=== PATIENT | female | born 1965 | race Caucasian/White ===

== ENCOUNTER → 2022-03-30 11:15 | Outpatient (CLI) | payer OTHER, SELFPAY ==
--- NOTE | 2022-03-30 11:19 | DI.MRI.S_ITS ---
PROCEDURE: MRFOOT LT WO CON INDICATIONS: LEFT FOOT PAIN TECHNIQUE: Noncontrast sagittal T1 spin echo and T2 fast spin echo with fat saturation, long-axis T1 spin echo and STIR, short-axis T1 spin echo and T2 fast spin echo with fat saturation through the forefoot. COMPARISON: None. FINDINGS: Image quality: Excellent. Bones and joints: No acute trabecular bone injury or fracture. Mild hallux valgus. Moderate degenerative changes are seen at the 1st metatarsophalangeal joint with cartilage loss, subchondral cystic changes, and subchondral edema as well as marginal osteophyte formation. A bipartite appearance of the medial hallux sesamoid with mild internal edema is most likely the related to congenital variation with superimposed degenerative changes versus less likely remote prior fracture. No sesamoid subluxation is seen. Mild focal cystic changes at the distal lateral aspect of the 1st cuneiform may be related to chronic traction related changes from the Lisfranc ligament insertion versus degenerative cystic changes. Soft tissues: A circumscribed mass is seen lateral to the 1st proximal phalanx extending into the 1st webspace and measuring up to 3.1 x 2.1 x 1.3 cm (image 10 of series 5, and image 18 of series 7). The mass is peripherally hyperintense and centrally hypointense on fat-suppressed T2-weighted images, and predominantly hyperintense on T1-weighted images. The mass approaches the plantar lateral aspect of the 1st metatarsophalangeal joint just distal to the lateral hallux sesamoid. There is grade 2-3 fatty infiltration of the abductor digiti minimi muscle that may be related to chronic denervation changes. The visualized plantar foot muscles otherwise demonstrate normal signal and bulk. Visualized flexor and extensor tendons appear intact, without tenosynovitis. The principal Lisfranc ligament appears intact. Sagittal images demonstrate no evidence for plantar plate tears. IMPRESSION: 1. Circumscribed 3.1 cm masslike lesion in the webspace between the 1st and 2nd toes may represent a ganglion cyst with proteinaceous or hemorrhagic contents versus a benign or malignant soft tissue neoplasm. MRI of the foot with and without contrast could be performed to evaluate for solid components and better evaluate for intralesional fat for further characterization. 2. Mild hallux valgus with moderate degenerative changes at the 1st metatarsophalangeal joint. Probable degenerative subchondral edema at the medial hallux sesamoid. 3. Fatty infiltration of the abductor digiti minimi muscle is suspicious for chronic denervation changes/Ortega neuropathy. Approved by: Rigo Wray M.D. on 04/02/2022 at 8:38
== END ==
PROVIDERS: Family Provider Physician Assistant; PCP Family Medicine; Referring Provider Family Medicine; Visit Provider Family Medicine
DX: R22.42 Localized swelling, mass and lump, left lower limb (principal); M20.12 Hallux valgus (acquired), left foot; M79.672 Pain in left foot
CPT/HCPCS: 73718

== ENCOUNTER 2022-07-04 10:32 | Outpatient (CLI) | payer OTHER, SELFPAY | END 2022-07-12 14:35 | disposition home or self-care (01) | PROVIDERS: Family Provider Family Medicine; PCP Family Medicine; Referring Provider Physical Medicine & Rehabilitation; Visit Provider Physical Medicine & Rehabilitation | DX: R20.2 Paresthesia of skin (principal) | CPT/HCPCS: 95886; 95909 ==

== ENCOUNTER 2024-05-25 10:45 | Outpatient (RCR) | payer OTHER, SELFPAY ==
--- NOTE | 2023-12-04 16:00 | ST.OPPOC ---
Physical, Occupational & Speech Therapy At [facility] Visit Care Team Role Provider Type Griselda Geller PA-C Primary Care Provider Non-Staff Address: [address] [place], [address] Magali Santiago MD Family Provider Non-Staff Address: [address] [place], [address] NGHIA Leroy Attending Provider Non-Staff Referring Provider Address: [address] [place], [address] Speech Pathology Plan of Care Plan of Care Dates 12/04/23-03/05/24 Patient History Christina De Leon is a 58-year old woman referred for speech therapy at the referral of Grace Rodríguez due to changes in speech and facial movement 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 She has seen multiple speech therapists and physical therapists to work on a myriad of symptoms that arose shortly after her surgery. Symptoms include the following: left eye numb, apparent shifting of left ear cartilliage (earbuds don't fit right anymore), feeling of taughtness along left side of face, numbness of majority of left side of face, numbness of left side of tongue and soft palate, dry mouth on left side, pain at the corner of the lips on left side, decreased smell and taste on left side, inability to raise left eyebrow, difficulty turning head left, dizziness, left eye twitching/fluttering, and jaw significantly to the left. Due to these various muscular and neurological changes, particularly her jaw deviating, she reports changes in her speech and particular difficulty with /s/ and /f/ phonemes. She does not report any changes in swallowing aside from difficulty with mastication secondary to reduced jaw opening and significant jaw deviation to the left. Her main concern right now is the sound of her speech and the assymetry of her face. Her goals for speech therapy are to ease the tension in her mastication muscles to allow for more natural mastication and re-align her jaw to facilitate accurate production of fricatives. Short Term Goals 1. Pt will benefit from instruction in compensatory articulator movements in order to produce target phonemes with 80% accuracy at the sentence level. 2. Pt will perform strengthening and stretching exercises for affected muscles (masseter, pterygoids, frontalis, etc) with 80% accuracy independently in order to decrease symptoms of facial paresis. Comment: Electronically Signed by: VERN Velasquez 12/09/23 3000 If you are in agreement with this Plan of Care, please return a signed and dated copy. I have reviewed this Plan of Care and certify that the skilled therapy services above are required to meet the patient?s needs. Physician Signature Date Printed Name and Credentials Clinical Instructor Signature Printed Name and Credentials
--- NOTE | 2023-12-04 16:00 | ST.OPIE ---
Visit Care Team Role Provider Type Griselda Geller PA-C Primary Care Provider Non-Staff Specialty: Medical Address: [address] [facility], [place], [address] Email: Magali Santiago MD Family Provider Non-Staff Specialty: Family Practice Address: [address] [place], [address] Email: NGHIA Leroy Attending Provider Non-Staff Referring Provider Specialty: Nursing Address: [address] [place], [address] Email: Speech-Language Pathology Initial Evaluation SUPERVISOR PURIFICATION Motor Speech Evaluation Start: 12/04/23 13:04 Freq: Status: Active Protocol: Document 12/04/23 13:22 CG (Rec: 12/04/23 13:43 CG [id number]) Motor Speech Evaluation Session Time Visit Start Time 13:00 Visit Stop Time 13:45 Total Visit Minutes 45 Visit Information Visit Number 1 Plan of Care Dates 12/04/23-03/05/24 Insurance Information [facility] Setting Setting Outpatient Care Next Note Type Next Note Type Treatment Note Patient History Source: [employer]). 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 She has seen multiple speech therapists and physical therapists to work on a myriad of symptoms that arose shortly after her surgery. Symptoms include the following : left eye numb, apparent shifting of left ear cartilage (earbuds don't fit right anymore), feeling of tautness along left side of face, numbness of majority of left side of face, numbness of left side of tongue and soft palate, dry mouth on left side, pain at the corner of the lips on left side, decreased smell and taste on left side, inability to raise left eyebrow, difficulty turning head left, dizziness, left eye twitching/fluttering, and jaw significantly to the left. Due to these various muscular and neurological changes, particularly her jaw deviating , she reports changes in her speech and particular difficulty with /s/ and /f/ phonemes. She does not report any changes in swallowing aside from difficulty with mastication secondary to reduced jaw opening and significant jaw deviation to the left. Her main concern right now is the sound of her speech and the asymmetry of her face. Her goals for speech therapy are to ease the tension in her mastication muscles to allow for more natural mastication and re- align her jaw to facilitate accurate production of fricatives. Mental Status Mental Status Alert,Responsive,Cooperative Subjective Observations Subjective Pt was alert, reponsive, cooperative, and able to recall detailed medical history relating to this referral. She ambulated to the evaluation room with a cane. She did not report significant pain other than feeling tightness on left side of the face. Oral Motor Lips Function Mild Impairment Observation at rest Relatively symmetrical Pucker Deviates left upon pucker Alternating pucker/retraction Motor planning appears WFL; adequate rate Tongue Function Mild Impairment Jaw Function Moderate Impairment Observations at rest deviates left Opening deviates significantly left. Reduced opening Soft Palate Function Mild Impairment Observations at rest Difficult to assess due to reduced jaw opening Symmetry Asymmetrical. Less elevation on left side Alternating elevation/relaxation WFL Respiration/Phonation Phonation Stimulus sustained /a/ Quality WFL Other pt reports increased hoarseness Function WFL Loudness WFL Diadochokinetic Rates P^ Duration per 3 sec. 27, 9 per sec Quality WNL Comments above average T^ Duration per 3 sec. 27, 9 per sec Quality WNL Comments above average K^ Duration per 3 sec. 26, 9 per sec Quality WNL Comments above average Speech Intelligibility Phoneme Severity WNL Word Severity WNL Sentence Severity WNL Conversation Severity WNL Awareness/Strategy Use Findings Details Motor Speech Function Mild Impairment Type of Impairment very mild misarticulation of / s/ phoneme Assessment Details Assessment The pt presents with a complex mix of symptoms which appear mostly related to muscles innervated by the trigeminal nerve (CN V), particularly along the mandibular branch of the trigeminal nerve. Other symptoms, however, have clear implications of facial nerve ( CN VII) involvement. For example, pt is unable to raise her left eyebrow and also has changes in taste and salivation on the left side. There are also symptoms consistent with involvement of CNVIII including vestibular challenges. Overall, most of the pt's symptoms appear to be related to CN III through VIII. It is this senior writer's suspicion that the pt will need further neurological evaluation, possibly facial EMG evaluation if not already completed, to further assess neurological involvement. Pt may benefit from exercises to relax tension or increase strength in some of the involved muscles; she may also benefit from instruction in articulator placement and how to compensate articulator placement within the vocal tract to decrease perceptual differences in phoneme production from her baseline. However, if there continues to be an underlying neurological etiology impacting the pt's ability to control these muscles, exercises will only be able to attempt to compensate for weakness and will not be able to restore lost function. Therefore, a continued interdisciplinary approach is recommended with PT, neurology , and the pt's facial palsy specialists. Prognosis Rehabilitation Potential Fair Recommendations Treatment Recommended Yes Therapy Recommendations 1. Continued interprofessional collaboration between SUPERVISOR PURIFICATION, PT , and neurologist to coordinate best POC. 2. Exercises to strengthen weakened muscled impacted by possible cranial nerve involvement. 3. Instruction in articulator placement to compensate for muscle weakness/paresis to increase accurate production of target phonemes. Short Term Goals 1. Pt will benefit from instruction in compensatory articulator movements in order to produce target phonemes with 80% accuracy at the sentence level. 2. Pt will perform strengthening and stretching exercises for affected muscles (masseter, pterygoids, frontalis, etc) with 80% accuracy independently in order to decrease symptoms of facial paresis. Referrals Suggested Neurology Patient/Family Education Education Described results of evaluation,Patient Understanding
--- NOTE | 2023-12-09 10:37 | ST-OP ANOTE ---
Physical, Occupational & Speech Therapy At [facility] Speech Therapy Note POULTRY HELPER faxed POC via E-fax to referring provider (NGHIA Leroy) this date requesting signature if in agreement.
--- NOTE | 2023-12-18 16:48 | ST.OPTN ---
Visit Care Team Role Provider Type Griselda Geller PA-C Primary Care Provider Non-Staff Address: [address] [facility], [place], [address] Magali Santiago MD Family Provider Non-Staff Address: [address] [place], [address] NGHIA Leroy Attending Provider Non-Staff Referring Provider Address: [address] [place], [address] PERFORMANCE ANALYST Treatment Note PERFORMANCE ANALYST Treatment Note Start: 12/18/23 16:38 Freq: Status: Active Protocol: Document 12/18/23 16:38 CG (Rec: 12/18/23 16:48 CG [id number]) Speech Pathology Treatment Note Session Time Visit Start Time 13:00 Visit Stop Time 13:45 Total Visit Minutes 45 Visit Information Visit Number 1 Plan of Care Dates 12/04/23-03/05/24 Next Note Type Next Note Type Treatment Note General Information Patient History Christina De Leon is a 58-year old woman referred for speech therapy at the referral of Grace Rodríguez due to changes in speech and facial movement 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 She has seen multiple speech therapists and physical therapists to work on a myriad of symptoms that arose shortly after her surgery. Symptoms include the following : left eye numb, apparent shifting of left ear cartilliage (earbuds don't fit right anymore), feeling of taughtness along left side of face, numbness of majority of left side of face, numbness of left side of tongue and soft palate, dry mouth on left side, pain at the corner of the lips on left side, decreased smell and taste on left side, inability to raise left eyebrow, difficulty turning head left, dizziness, left eye twitching/fluttering, and jaw significantly to the left. Due to these various muscular and neurological changes, particularly her jaw deviating , she reports changes in her speech and particular difficulty with /s/ and /f/ phonemes. She does not report any changes in swallowing aside from difficulty with mastication secondary to reduced jaw opening and significant jaw deviation to the left. Her main concern right now is the sound of her speech and the assymetry of her face. Her goals for speech therapy are to ease the tension in her mastication muscles to allow for more natural mastication and re- align her jaw to facilitate accurate production of fricatives. Objective Short Term Goals 1. Pt will benefit from instruction in compensatory articulator movements in order to produce target phonemes with 80% accuracy at the sentence level. 2. Pt will perform strengthening and stretching exercises for affected muscles (masseter, pterygoids, frontalis, etc) with 80% accuracy independently in order to decrease symptoms of facial paresis. Treatment Activities Discussed continued outside referrals and possible further testing for cranial nerve activity. PERFORMANCE ANALYST to discuss with pt's PCP and/or PT. Discussed self-massage techniques to assist in releasing SCM muscle and trapezius to decrease tension around extrinsic laryngeal muscles as well as facial muscles on left side. Discussed articulator placement for /s/ and use of lateralizing tongue to overcorrect airflow to become more central through the oral cavity. Assessment Patient Response to Treatment Good Impairments Identified Speech,Other Progress Towards Goals Good Progress Assessment of Improvement Pt was agreeable to pursuing further interprofessional evaluation to determine underlying cause of facial muscle weakness. Pt demonstrates very tight/tense SCM and trapezius upon palpation. Discussed basic stretches and encouraged pt to follow with PT. Pt would likely benefit from more frequent PT visits as there is significant muscular tension related to jaw asymmetry. Pt was able to lateralize tongue R to correct airflow for /s/. Pt was able to produce /s/ blends at the word level with 75% accuracy independently. She had more difficulty with / st/, /sw/, and /sl/ blends and was more successful with /sk/ blends. Assigned practiced word lists to practice compensatory lingual movement. PERFORMANCE ANALYST to contact PCP and PT re further assessment and discussion of increasing PT for muscle tension. Patient/Caregiver Understanding Good Plan Amount of Therapy Recommended 2 Months Length of Session 30 Minutes Therapeutic Contents Intelligibility,Oral Motor Training Provided Patient/Caregiver Instruction Home Exercise Program
--- NOTE | 2024-02-04 17:33 | ST.OPTN ---
Visit Care Team Role Provider Type Griselda Geller PA-C Primary Care Provider Non-Staff Address: [address] [facility], [place], [address] Magali Santiago MD Family Provider Non-Staff Address: [address] [place], [address] NGHIA Leroy Attending Provider Non-Staff Referring Provider Address: [address] [place], [address] EHS MANAGER Treatment Note EHS MANAGER Treatment Note Start: 12/18/23 16:38 Freq: Status: Active Protocol: Document 02/04/24 17:13 SS (Rec: 02/04/24 17:33 SS [id number]) Speech Pathology Treatment Note Session Time Visit Start Time 14:30 Visit Stop Time 15:16 Total Visit Minutes 46 Visit Information Visit Number 2 (15 visits only) Plan of Care Dates 12/04/23-03/05/24 Setting Treatment Setting Outpatient Care Visit Type Note Type Treatment Note Next Note Type Next Note Type Treatment Note General Information Patient History Christina De Leon is a 58-year old woman referred for speech therapy at the referral of Grace Rodríguez due to changes in speech and facial movement 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 She has seen multiple speech therapists and physical therapists to work on a myriad of symptoms that arose shortly after her surgery. Symptoms include the following : left eye numb, apparent shifting of left ear cartilliage (earbuds don't fit right anymore), feeling of taughtness along left side of face, numbness of majority of left side of face, numbness of left side of tongue and soft palate, dry mouth on left side, pain at the corner of the lips on left side, decreased smell and taste on left side, inability to raise left eyebrow, difficulty turning head left, dizziness, left eye twitching/fluttering, and jaw significantly to the left. Due to these various muscular and neurological changes, particularly her jaw deviating , she reports changes in her speech and particular difficulty with /s/ and /f/ phonemes. She does not report any changes in swallowing aside from difficulty with mastication secondary to reduced jaw opening and significant jaw deviation to the left. Her main concern right now is the sound of her speech and the assymetry of her face. Her goals for speech therapy are to ease the tension in her mastication muscles to allow for more natural mastication and re- align her jaw to facilitate accurate production of fricatives. Subjective Identification Type Name Observations/Patient Presentation Pt arrived to the session on time. She was engaged and motivated throughout. Objective Short Term Goals 1. Pt will benefit from instruction in compensatory articulator movements in order to produce target phonemes with 80% accuracy at the sentence level. 2. Pt will perform strengthening and stretching exercises for affected muscles (masseter, pterygoids, frontalis, etc) with 80% accuracy independently in order to decrease symptoms of facial paresis. Treatment Activities Discussed results of outside referrals and possible further testing for cranial nerve activity. Reviewed self- massage techniques to assist in releasing SCM muscle and trapezius to decrease tension around extrinsic laryngeal muscles as well as facial muscles on left side. Discussed articulator placement for /s/ and use of lateralizing tongue to overcorrect airflow to become more central through the oral cavity and implemented during functional speech activities. . Assessment Patient Response to Treatment Good Impairments Identified Speech,Other Progress Towards Goals Good Progress Assessment of Improvement Pt reported she has not had PT services for two months as the rehabilitation clinic was closed, but services are set to resume next month. Additionally, she expressed she had a dental visit recently and the dentist had noted decreased lingual muscle tone on the left side. She had a repeat MRI recently which showed scar tissue on the brain stem, and has a repeat MRI scheduled in a few months. She had a neurology assessment which did not include a thorough nerve assessment or a treatment plan per pt report. Pt continues to demonstrate tight/tense SCM and trapezius upon palpation, which she reported has increased in severity. Reviewed basic stretches, though pt reported she has difficulty completing these, even with use of mirror, given lack of sensation on the lower half of her face. Recommended pt follow with PT for manual massage/myofascial release given muscular tension related to jaw asymmetry. Pt agreeable to recommendation. Pt was able to lateralize tongue R to correct airflow for /s/. Pt was able to produce /s/ blends at the word level with 80% accuracy independently while maintaining 100% intelligibility in speech. Additionally, implemented tongue twisters while utilizing compensatory speech strategies (i.e., slightly slower rate, pauses, and over- articulation as needed), which pt completed with 75% accuracy. Assigned practiced word lists and tongue twisters to practice compensatory lingual movement. Pt agreeable to HEP. Provided education re : use of xylimelts for xerostomia and plan to address trismus in next session if pt reports no change in function . EHS MANAGER to contact PCP re: further assessment of nerve function and possible medical treatment. Patient/Caregiver Understanding Good Plan Amount of Therapy Recommended 2 Months Length of Session 30 Minutes Therapeutic Contents Intelligibility,Oral Motor Training Provided Patient/Caregiver Instruction Home Exercise Program
--- NOTE | 2024-02-06 11:09 | ST-OP ANOTE ---
Physical, Occupational & Speech Therapy At [facility] Speech Therapy Note Called pt's PCP, Griselda Button, and left message with medical office re: recommendation for further cranial nerve activity testing to inform treatment as well as resuming physical therapy for muscle tension related to jaw asymmetry. Will follow up as needed.
--- NOTE | 2024-02-19 13:41 | ST.OPTN ---
Visit Care Team Role Provider Type Griselda Geller PA-C Primary Care Provider Non-Staff Address: [address], [place], [address] Magali Santiago MD Family Provider Non-Staff Address: [address] [place], [address] NGHIA Leroy Attending Provider Non-Staff Referring Provider Address: [address] [place], [address] LEASING AGENT Treatment Note LEASING AGENT Treatment Note Start: 12/18/23 16:38 Freq: Status: Active Protocol: Document 02/19/24 12:59 CG (Rec: 02/19/24 13:01 CG [id number]) Speech Pathology Treatment Note Session Time Visit Start Time 12:15 Visit Stop Time 13:00 Total Visit Minutes 45 Visit Information Visit Number 3 (15 visits only) Plan of Care Dates 02/19/24-05/21/24 Setting Treatment Setting Outpatient Care Visit Type Note Type Treatment Note Next Note Type Next Note Type Treatment Note General Information Patient History Christina De Leon is a 58-year old woman referred for speech therapy at the referral of Grace Rodríguez due to changes in speech and facial movement 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 She has seen multiple speech therapists and physical therapists to work on a myriad of symptoms that arose shortly after her surgery. Symptoms include the following : left eye numb, apparent shifting of left ear cartilliage (earbuds don't fit right anymore), feeling of taughtness along left side of face, numbness of majority of left side of face, numbness of left side of tongue and soft palate, dry mouth on left side, pain at the corner of the lips on left side, decreased smell and taste on left side, inability to raise left eyebrow, difficulty turning head left, dizziness, left eye twitching/fluttering, and jaw significantly to the left. Due to these various muscular and neurological changes, particularly her jaw deviating , she reports changes in her speech and particular difficulty with /s/ and /f/ phonemes. She does not report any changes in swallowing aside from difficulty with mastication secondary to reduced jaw opening and significant jaw deviation to the left. Her main concern right now is the sound of her speech and the assymetry of her face. Her goals for speech therapy are to ease the tension in her mastication muscles to allow for more natural mastication and re- align her jaw to facilitate accurate production of fricatives. Subjective Identification Type Name Observations/Patient Presentation Pt arrived to the session on time. She was engaged and motivated throughout. Objective Short Term Goals 1. Pt will increase jaw opening by at least 5 mm as measured by a range of motion scale for Maximum Mouth Opening (MMO). 2. Pt will perform home exercise program for trismus rehabilitation with 80% compliance as measured by pt report and self-charting. 1. Pt will benefit from instruction in compensatory articulator movements in order to produce target phonemes with 80% accuracy at the sentence level. 02/19/24 - Goal met. Pt produces /s/ and /s/ blends with 80%+ accuracy independently; intelligibility remains 100%. 2. Pt will perform strengthening and stretching exercises for affected muscles (masseter, pterygoids, frontalis, etc) with 80% accuracy independently in order to decrease symptoms of facial paresis. 02/19/24 - Discontinue goal; replace with new goal r/t jaw opening. Treatment Activities Discussed results of outside referrals and possible further testing for cranial nerve activity, with discussion about referral to a specific neurologist specializing in EMG (Kristel Cabral). Discussed possible LEASING AGENT contributions to assist with trismus. Discussed exploring TheraBite or similar device to rehabilitate jaw opening. Assessment Patient Response to Treatment Good Rehab Potential Fair Impairments Identified Speech,Other Progress Towards Goals Good Progress Assessment of Improvement Pt reported she has recently resumed PT services. She further explained this session that she had a repeat MRI at the end of December which showed a mass that may either be scar tissue on the brainstem or the regrowth of a tumor. Pt continues to report extremely tight masseter/SCM and feels this is best assisted with myofascial release. Recommended pt follow with PT for manual massage/ myofascial release given muscular tension related to jaw asymmetry, as this LEASING AGENT is not certified in manual therapy. Pt agreeable to recommendation. Pt was interested in pursuing therapy with jaw oepning device such as TheraBite. LEASING AGENT to pursue DME order with pt's PCP. Pt is seeing her PCP again Nov. and will continue discussion re new referral to neuro for second opinion/ possibility of facial EMG. POC updated this date based on new plan for targeting trismus . Patient/Caregiver Understanding Good Plan Amount of Therapy Recommended 2 Months Length of Session 30 Minutes Therapeutic Contents Intelligibility,Oral Motor Training Provided Patient/Caregiver Instruction Home Exercise Program
--- NOTE | 2024-04-01 16:39 | ST.OPTN ---
Visit Care Team Role Provider Type Griselda Geller PA-C Primary Care Provider Non-Staff Address: [address] [facility], [place], [address] Magali Santiago MD Family Provider Non-Staff Address: [address] [place], [address] NGHIA Leroy Attending Provider Non-Staff Referring Provider Address: [address] [place], [address] ENGINEERING MGR Treatment Note ENGINEERING MGR Treatment Note Start: 12/18/23 16:38 Freq: Status: Active Protocol: Document 04/01/24 16:21 CG (Rec: 04/01/24 16:39 CG [id number]) Speech Pathology Treatment Note Session Time Visit Start Time 14:30 Visit Stop Time 15:10 Total Visit Minutes 40 Visit Information Visit Number 4 (15 visits only) Plan of Care Dates 02/19/24-05/21/24 Setting Treatment Setting Outpatient Care Visit Type Note Type Treatment Note Next Note Type Next Note Type Treatment Note General Information Patient History Christina De Leon is a 58-year old woman referred for speech therapy at the referral of Grace Rodríguez due to changes in speech and facial movement 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 She has seen multiple speech therapists and physical therapists to work on a myriad of symptoms that arose shortly after her surgery. Symptoms include the following : left eye numb, apparent shifting of left ear cartilliage (earbuds don't fit right anymore), feeling of taughtness along left side of face, numbness of majority of left side of face, numbness of left side of tongue and soft palate, dry mouth on left side, pain at the corner of the lips on left side, decreased smell and taste on left side, inability to raise left eyebrow, difficulty turning head left, dizziness, left eye twitching/fluttering, and jaw significantly to the left. Due to these various muscular and neurological changes, particularly her jaw deviating , she reports changes in her speech and particular difficulty with /s/ and /f/ phonemes. She does not report any changes in swallowing aside from difficulty with mastication secondary to reduced jaw opening and significant jaw deviation to the left. Her main concern right now is the sound of her speech and the assymetry of her face. Her goals for speech therapy are to ease the tension in her mastication muscles to allow for more natural mastication and re- align her jaw to facilitate accurate production of fricatives. Subjective Identification Type Name Observations/Patient Presentation Pt arrived to the session on time. She was engaged and motivated throughout. Objective Short Term Goals 1. Pt will increase jaw opening by at least 5 mm as measured by a range of motion scale for Maximum Mouth Opening (MMO). 2. Pt will perform home exercise program for trismus rehabilitation with 80% compliance as measured by pt report and self-charting. 1. Pt will benefit from instruction in compensatory articulator movements in order to produce target phonemes with 80% accuracy at the sentence level. 02/19/24 - Goal met. Pt produces /s/ and /s/ blends with 80%+ accuracy independently; intelligibility remains 100%. 2. Pt will perform strengthening and stretching exercises for affected muscles (masseter, pterygoids, frontalis, etc) with 80% accuracy independently in order to decrease symptoms of facial paresis. 02/19/24 - Discontinue goal; replace with new goal r/t jaw opening. Treatment Activities Discussed ongoing outside rate r/t trismus including progress with PT, updates from PCP re order of DME device ( TheraBite) and re order for EMG nerve testing of cranial nerves. Trials of solid foods with L head turn to decrease pharyngeal residue in L side of pharynx 2/ L sided BOT weakness. Discussed adaptations to oral-motor exercises to increase resistance. Assessment Patient Response to Treatment Good Rehab Potential Fair Impairments Identified Speech,Other Progress Towards Goals Good Progress Assessment of Improvement Pt reported she has been working diligently with PT on exercises for trismus and hemiparesis of L facial muscles. PT has been targeting reducing tension in facial and cervical muscles on that side. Pt reports she is still numb on left side of face/tongue. Her PCP placed referral for EMG, but unclear of status for this. ENGINEERING MGR to follow up with PCP. Additionally, PCP stated she is awaiting forms from [employer] for order of TheraBite . ENGINEERING MGR to follow up with [facility] ([employer] for TheraBite). During trials of solids (spring cracker) with L head turn, pt stated L head turn reduced pharyngeal residue across 3 trials. Pt demonstrated understanding of adding resistance for oral motor exercises, specifically obicularis duane exercise. She noted significant differences in pull strength against resistance on L and R side, with continued weakness on L side. ENGINEERING MGR to follow up with outside referrals/orders and see pt again in approximately 6 weeks to assess progress and work to introduce TheraBite if it has been acquired. Patient/Caregiver Understanding Good Plan Amount of Therapy Recommended 2 Months Length of Session 30 Minutes Therapeutic Contents Intelligibility,Oral Motor Training,Swallowing/Feeding Provided Patient/Caregiver Instruction Home Exercise Program
--- NOTE | 2024-04-20 12:00 | ST.OPPOC ---
Physical, Occupational & Speech Therapy At [facility] Visit Care Team Role Provider Type Griselda Geller PA-C Primary Care Provider Non-Staff Address: [address] [place], [address] Magali Santiago MD Family Provider Non-Staff Address: [address] [place], [address] NGHIA Leroy Attending Provider Non-Staff Referring Provider Address: [address] [place], [address] Speech Pathology Plan of Care Plan of Care Dates 04/20/24-07/20/23 Patient History Christina De Leon is a 58-year old woman referred for speech therapy at the referral of Grace Rodríguez due to changes in speech and facial movement 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 She has seen multiple speech therapists and physical therapists to work on a myriad of symptoms that arose shortly after her surgery. Symptoms include the following: left eye numb, apparent shifting of left ear cartilliage (earbuds don't fit right anymore), feeling of taughtness along left side of face, numbness of majority of left side of face, numbness of left side of tongue and soft palate, dry mouth on left side, pain at the corner of the lips on left side, decreased smell and taste on left side, inability to raise left eyebrow, difficulty turning head left, dizziness, left eye twitching/fluttering, and jaw significantly to the left. Due to these various muscular and neurological changes, particularly her jaw deviating, she reports changes in her speech and particular difficulty with /s/ and /f/ phonemes. She does not report any changes in swallowing aside from difficulty with mastication secondary to reduced jaw opening and significant jaw deviation to the left. Her main concern right now is the sound of her speech and the assymetry of her face. Her goals for speech therapy are to ease the tension in her mastication muscles to allow for more natural mastication and re-align her jaw to facilitate accurate production of fricatives. Since initial evaluation, pt has been seen by speech therapy at this clinic 4 times. Future direction of treatment is largely dependent upon pt obtaining TheraBite device (jaw stretching/ oral stretching device) or similar DME. Impairments Identified Speech,Other Progress Towards Goals Good Progress Short Term Goals 1. Pt will increase jaw opening by at least 5 mm as measured by a range of motion scale for Maximum Mouth Opening (MMO). CONTINUE GOAL 04/20 2. Pt will perform home exercise program for trismus rehabilitation with 80% compliance as measured by pt report and self-charting. CONTINUE GOAL 04/20/24 DISCONTINUED GOALS: 1. Pt will benefit from instruction in compensatory articulator movements in order to produce target phonemes with 80% accuracy at the sentence level. 02/19/24 - Goal met. Pt produces /s/ and /s/ blends with 80%+ accuracy independently; intelligibility remains 100%. 2. Pt will perform strengthening and stretching exercises for affected muscles (masseter, pterygoids, frontalis, etc) with 80% accuracy independently in order to decrease symptoms of facial paresis. 02/19/24 - Discontinue goal; replace with new goal r/t jaw opening. Administrative Appeals Tribunal Member Goals 1. Pt will increase jaw opening by at least 7 mm as measured by a range of motion scale for Maximum Mouth Opening (MMO) in order to reduce impact of trismus symptoms on speech and mastication. Comment: Electronically Signed by: VERN Velasquez 04/20/24 1200 If you are in agreement with this Plan of Care, please return a signed and dated copy. I have reviewed this Plan of Care and certify that the skilled therapy services above are required to meet the patient?s needs. Physician Signature Date Printed Name and Credentials Clinical Instructor Signature Printed Name and Credentials
--- NOTE | 2024-05-25 11:56 | ST-OP ANOTE ---
Physical, Occupational & Speech Therapy At [facility] Speech Therapy Note [employer] called and LVM with pt's PCP re requesting new referral and auth from [place]. Pt also states she will send message via her patient portal.
--- NOTE | 2024-05-25 12:09 | ST.OPTN ---
Visit Care Team Role Provider Type Grieslda Geller PA-C Primary Care Provider Non-Staff Address: [address] [facility], [place], [address] Magali Santiago MD Family Provider Non-Staff Address: [address] [place], [address] NGHIA Leroy Attending Provider Non-Staff Referring Provider Address: [address] [place], [address] STAINING MACHINE OPERATOR Treatment Note STAINING MACHINE OPERATOR Treatment Note Start: 12/18/23 16:38 Freq: Status: Active Protocol: Document 05/25/24 11:18 CG (Rec: 05/25/24 12:08 CG [id number]) Speech Pathology Treatment Note Session Time Visit Start Time 10:55 Visit Stop Time 11:35 Total Visit Minutes 40 Visit Information Visit Number 5 (15 visits only) Plan of Care Dates 04/20/24-07/20/23 Setting Treatment Setting Outpatient Care Visit Type Note Type Treatment Note Next Note Type Next Note Type Treatment Note General Information Patient History Christina De Leon is a 58-year old woman referred for speech therapy at the referral of Grace Rodríguez due to changes in speech and facial movement 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 She has seen multiple speech therapists and physical therapists to work on a myriad of symptoms that arose shortly after her surgery. Symptoms include the following : left eye numb, apparent shifting of left ear cartilliage (earbuds don't fit right anymore), feeling of taughtness along left side of face, numbness of majority of left side of face, numbness of left side of tongue and soft palate, dry mouth on left side, pain at the corner of the lips on left side, decreased smell and taste on left side, inability to raise left eyebrow, difficulty turning head left, dizziness, left eye twitching/fluttering, and jaw significantly to the left. Due to these various muscular and neurological changes, particularly her jaw deviating , she reports changes in her speech and particular difficulty with /s/ and /f/ phonemes. She does not report any changes in swallowing aside from difficulty with mastication secondary to reduced jaw opening and significant jaw deviation to the left. Her main concern right now is the sound of her speech and the assymetry of her face. Her goals for speech therapy are to ease the tension in her mastication muscles to allow for more natural mastication and re- align her jaw to facilitate accurate production of fricatives. ___ Since initial evaluation, pt has been seen by speech therapy at this clinic 4 times . Future direction of treatment is largely dependent upon pt obtaining TheraBite device (jaw stretching/oral stretching device) or similar DME. Subjective Identification Type Name Observations/Patient Presentation Pt arrived to the session slightly late. She was engaged and motivated throughout. Objective Short Term Goals 1. Pt will increase jaw opening by at least 5 mm as measured by a range of motion scale for Maximum Mouth Opening (MMO). CONTINUE GOAL 04/20/24 2. Pt will perform home exercise program for trismus rehabilitation with 80% compliance as measured by pt report and self-charting. CONTINUE GOAL 04/20/24 DISCONTINUED GOALS: 1. Pt will benefit from instruction in compensatory articulator movements in order to produce target phonemes with 80% accuracy at the sentence level. 02/19/24 - Goal met. Pt produces /s/ and /s/ blends with 80%+ accuracy independently; intelligibility remains 100%. 2. Pt will perform strengthening and stretching exercises for affected muscles (masseter, pterygoids, frontalis, etc) with 80% accuracy independently in order to decrease symptoms of facial paresis. 02/19/24 - Discontinue goal; replace with new goal r/t jaw opening. Gold Blower Goals 1. Pt will increase jaw opening by at least 7 mm as measured by a range of motion scale for Maximum Mouth Opening (MMO) in order to reduce impact of trismus symptoms on speech and mastication. Treatment Activities Discussed ongoing outside rate r/t trismus including progress with PT, updates from PCP re order of DME device ( TheraBite) and discussed results of facial EMG. Mandibular opening exercises with STAINING MACHINE OPERATOR-assisted stretch. Discussed modification to mandibular opening exercises to stabilize jaw anteriorly. Discussed POC and working on getting new auth. Assessment Patient Response to Treatment Good Rehab Potential Fair Impairments Identified Speech,Other Progress Towards Goals Good Progress Assessment of Improvement Pt has been working with PT to decrease left sided jaw tension. Jaw opening has increased slightly and pt also reports reduced tension in neck/SCMs partially due to not needing to use her cane as frequently (pt uses L hand for cane which increases tension on L neck/shoulder muscles). Pt had a facial EMG completed by neurologist in [place] which showed results WFL. Neurologist reported positive prognosis for pt being able to rehabilitate target muscles based on EMG result. During mandibular opening exercises, pt demosntrates increased opening; however, mandible tends to move posteriorly during opening, limiting A-P stretch of jaw muscles. STAINING MACHINE OPERATOR added stabilization of mandible in forward position. Pt reported increased stretch with forward mandible hold. Recommended adding forward stabilization to mandibular stretches. Progress with trisumus tx with STAINING MACHINE OPERATOR has been partially hindered by difficulties coordinating pt obtaining DME device (TheraBite/OraStretch) for jaw stretching. Pt states that initial DME order was not sent to [place], but this has since been resolved. She states that purchase order has been completed. Reviewed with Patient Goals Patient/Caregiver Understanding Good Plan Amount of Therapy Recommended 2 Months Length of Session 30 Minutes Therapeutic Contents Intelligibility,Oral Motor Training,Swallowing/Feeding Provided Patient/Caregiver Instruction Plan of Care
--- NOTE | 2024-09-03 14:33 | ST-OP ANOTE ---
Physical, Occupational & Speech Therapy At [facility] Speech Therapy Note [employer] called pt to inquire if pt would like to resume services or discharge at this time. Pt is having challenges obtaining additional insurance authorization as well as DME recommended. Will continue to follow. If pt unable to resume services within a month or two, will discharge, and complete new evaluation.
--- NOTE | 2024-10-01 13:42 | ST.OPDS ---
Visit Care Team Role Provider Type Griselda Geller PA-C Primary Care Provider Non-Staff Address: [address], [place], [address] Magali Santiago MD Family Provider Non-Staff Address: [address] [place], [address] NGHIA Leroy Attending Provider Non-Staff Referring Provider Address: [address] [place], [address] SORTER OPERATOR Treatment Note SORTER OPERATOR Treatment Note Start: 12/18/23 16:38 Freq: Status: Active Protocol: Document 10/01/24 13:39 SS (Rec: 10/01/24 13:42 SS Desktop) Speech Pathology Treatment Note Visit Information Visit Number 5 (15 visits only) Plan of Care Dates 04/20/24-07/20/23 Setting Treatment Setting Outpatient Care Visit Type Note Type Discharge Summary General Information Patient History Christina De Leon is a 58-year old woman referred for speech therapy at the referral of Grace Rodríguez due to changes in speech and facial movement 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 She has seen multiple speech therapists and physical therapists to work on a myriad of symptoms that arose shortly after her surgery. Symptoms include the following : left eye numb, apparent shifting of left ear cartilliage (earbuds don't fit right anymore), feeling of taughtness along left side of face, numbness of majority of left side of face, numbness of left side of tongue and soft palate, dry mouth on left side, pain at the corner of the lips on left side, decreased smell and taste on left side, inability to raise left eyebrow, difficulty turning head left, dizziness, left eye twitching/fluttering, and jaw significantly to the left. Due to these various muscular and neurological changes, particularly her jaw deviating , she reports changes in her speech and particular difficulty with /s/ and /f/ phonemes. She does not report any changes in swallowing aside from difficulty with mastication secondary to reduced jaw opening and significant jaw deviation to the left. Her main concern right now is the sound of her speech and the assymetry of her face. Her goals for speech therapy are to ease the tension in her mastication muscles to allow for more natural mastication and re- align her jaw to facilitate accurate production of fricatives. ___ Since initial evaluation, pt has been seen by speech therapy at this clinic 4 times . Future direction of treatment is largely dependent upon pt obtaining TheraBite device (jaw stretching/oral stretching device) or similar DME. Objective Short Term Goals 1. Pt will increase jaw opening by at least 5 mm as measured by a range of motion scale for Maximum Mouth Opening (MMO). CONTINUE GOAL 04/20/24 2. Pt will perform home exercise program for trismus rehabilitation with 80% compliance as measured by pt report and self-charting. CONTINUE GOAL 04/20/24 DISCONTINUED GOALS: 1. Pt will benefit from instruction in compensatory articulator movements in order to produce target phonemes with 80% accuracy at the sentence level. 02/19/24 - Goal met. Pt produces /s/ and /s/ blends with 80%+ accuracy independently; intelligibility remains 100%. 2. Pt will perform strengthening and stretching exercises for affected muscles (masseter, pterygoids, frontalis, etc) with 80% accuracy independently in order to decrease symptoms of facial paresis. 02/19/24 - Discontinue goal; replace with new goal r/t jaw opening. Correction Goals 1. Pt will increase jaw opening by at least 7 mm as measured by a range of motion scale for Maximum Mouth Opening (MMO) in order to reduce impact of trismus symptoms on speech and mastication. Treatment Activities Discussed ongoing outside rate r/t trismus including progress with PT, updates from PCP re order of DME device ( TheraBite) and discussed results of facial EMG. Mandibular opening exercises with SORTER OPERATOR-assisted stretch. Discussed modification to mandibular opening exercises to stabilize jaw anteriorly. Discussed POC and working on getting new auth. Assessment Patient Response to Treatment Good Rehab Potential Fair Impairments Identified Speech,Other Progress Towards Goals Good Progress Assessment of Improvement Pt has been working with PT to decrease left sided jaw tension. Jaw opening has increased slightly and pt also reports reduced tension in neck/SCMs partially due to not needing to use her cane as frequently (pt uses L hand for cane which increases tension on L neck/shoulder muscles). Pt had a facial EMG completed by neurologist in [place] which showed results WFL. Neurologist reported positive prognosis for pt being able to rehabilitate target muscles based on EMG result. During mandibular opening exercises, pt demosntrates increased opening; however, mandible tends to move posteriorly during opening, limiting A-P stretch of jaw muscles. SORTER OPERATOR added stabilization of mandible in forward position. Pt reported increased stretch with forward mandible hold. Recommended adding forward stabilization to mandibular stretches. Progress with trisumus tx with SORTER OPERATOR has been partially hindered by difficulties coordinating pt obtaining DME device (TheraBite/OraStretch) for jaw stretching. Pt states that initial DME order was not sent to [place], but this has since been resolved. She states that purchase order has been completed. *Since last session, pt has had challenges obtaining additional insurance authorization as well as DME recommended. Discharge completed at this time. Recommend pt request new order from PCP if she would like to resume SORTER OPERATOR services and is able to obtain insurance authorization. Reviewed with Patient Goals Patient/Caregiver Understanding Good Plan Amount of Therapy Recommended No Further Therapy Frequency of Treatment No Further Therapy Therapeutic Contents Intelligibility,Oral Motor Training,Swallowing/Feeding Therapy Recommendations Discharge from Speech Therapy
== END 2024-10-06 10:26 | disposition home or self-care (01) ==
LOC: SP 10:45
PROVIDERS: Family Provider Family Medicine; PCP Physician Assistant; Referring Provider Nurse Practitioner Family; Visit Provider Nurse Practitioner Family
DX: G24.9 Dystonia, unspecified (principal)
CPT/HCPCS: 92507; 92522; 92526